=== PATIENT | male | born 1955 | race Two or more races ===

== ENCOUNTER 2023-10-09 15:49 | Inpatient (IN) | payer MEDICARE, MEDICAID ==
[~2023-10-09] VITALS: Ht 167.6 cm; Wt 72.6 kg
[2023-10-09] VITALS (10 sets, daily range): BP systolic 0–177; BP diastolic 22–102; PULSE 0–104; RESP 0–38; O2SAT 0–100
[~2023-10-09 15:49] MED LIST: atropine 0.1mg/ml 10ml syringe ONE; epiNEPHrine 0.1mg/ml 10ml syringe ONE; sod chloride 0.9% 10ml flush syringe IV ONE; sodium bicarbonate (8.4%) 1 mEq/ml syringe ONE
[2023-10-09] MEDS ORDERED: heparin 1,000unit/ml 10ml vial 10 ML ONE (15:57)
[2023-10-09] MEDS ORDERED: midazolam 1 mg/ML 2ml injection ONE (15:57)
[2023-10-09] MEDS ORDERED: iohexol 350 MG/ML 50ML vial IV ONE (15:57)
[2023-10-09] MEDS ORDERED: fentaNYL/PF 50MCG/1 ML 2ML syringe ONE (15:57)
[2023-10-09] MEDS ORDERED: iohexol 350MG/ML 100ml bottle IV ONE ×2 (15:57→16:41)
[2023-10-09] MEDS ORDERED: LIDOcaine 1% 30ml preserv. free vial ONE (15:57)
[2023-10-09] MEDS ORDERED: amiodarone 50MG/ML inj IV ONE (16:40)
[2023-10-09] MEDS ORDERED: amiodarone inj. 450 MG in dextrose 5%-water 241 ML IV SCH (16:40)
[2023-10-09] MEDS ORDERED: mag hydrox/Alum hydrox/simeth 30ml oral suspension PO PRN (17:00)
[2023-10-09] MEDS ORDERED: magnesium 2GM in 50ml NS 50 ML IV PRN (17:00)
[2023-10-09] MEDS ORDERED: acetaminophen 325mg tablet PO PRN (17:00)
[2023-10-09] MEDS ORDERED: potassium Cl 40MEQ/1/2NS 520ml 520 ML IV PRN (17:00)
[2023-10-09] MEDS ORDERED: magnesium Cl slow-release 64mg tablet PO PRN (17:00)
[2023-10-09] MEDS ORDERED: ondansetron/PF 4mg/2ml inj IV PRN (17:00)
[2023-10-09] MEDS ORDERED: morphine 2 MG/ML inj. syringe IV PRN ×2 (17:00)
[2023-10-09] MEDS: LidoCAINE 2% Topical Jelly 11mL syringe (UROJET) TOP ONE (17:00)
[2023-10-09] MEDS ORDERED: magnesium hydroxide 30ml (MOM) UD suspension PO PRN (17:00)
[2023-10-09] MEDS ORDERED: magnesium 4gm in 100ml NS 100 ML IV PRN (17:00)
[2023-10-09] MEDS ORDERED: potassium Cl 20 mEq SR tablet PO PRN ×2 (17:00)
[2023-10-09] MEDS ORDERED: HYDROcodone/acetaminophen 5mg/325mg tablet PO PRN (17:00)
[2023-10-09] MEDS ORDERED: HYDROcodone/acetaminophen 10/325mg tab PO PRN (17:00)
[2023-10-09] MEDS ORDERED: nitroGLYCERIN 500mcg/5mL D5W 5 ML IV ONE (17:04)
[2023-10-09] MEDS ORDERED: NORepinephrine 1 mg/ml inj IV ONE (17:31)
[2023-10-09] MEDS ORDERED: phenylephrine 10mg/ml inj. -priapism dosing ONE (17:40)
[2023-10-09] MEDS ORDERED: DOBUTamine-DoBUTrex 500mg/D5W 250 ML IV ONE (17:45)
[2023-10-09] MEDS: NORepinephrine 8mg/ 250ml NS 250 ML IV SCH (19:03)
[2023-10-09] MEDS: DEXTROSE 5% IV SCH (19:05)
[2023-10-09] MEDS: EPINEPHRINE IV SCH (19:05)
[2023-10-09] MEDS: WATER IV SCH (19:05)
[2023-10-09 19:37] LABS: BASOPHILS % (AUTO) 0.2 % (0-1); EOSINOPHILS % (AUTO) 0.1 % (0-6); HEMATOCRIT 31.4 % (42.0-52.0); HEMOGLOBIN 10.2 g/dl (14.0-17.9); LYMPHOCYTES # (AUTO) 1.5 X10'3 (1.1-4.8); LYMPHOCYTES % (AUTO) 5.8 % (21-51); MEAN CORPUSCULAR HEMOGLOBIN 28.6 PG (27.0-31.0); MEAN CORPUSCULAR HGB CONC 32.3 g/dL (33.0-36.5); MEAN CORPUSCULAR VOLUME 88.5 FL (78-98); MEAN PLATELET VOLUME 12.1 FL (7.4-10.4); MONOCYTES # (AUTO) 2.3 X10'3 (0-0.9); NEUTROPHILS # (AUTO) 21.4 X10'3 (1.8-7.7); NEUTROPHILS % (AUTO) 84.9 % (42-75); PLATELET COUNT 178 X10'3 (140-440); RED BLOOD COUNT 3.55 X10'6 (4.70-6.10); RED CELL DISTRIBUTION WIDTH 15.9 % (11.5-14.5)
[2023-10-09 19:41] LABS: WHITE BLOOD COUNT 25.2 X10'3 (4.5-11.0)
[2023-10-09] MEDS: sodium bicarbonate (8.4%) 1 mEq/ml syringe IV ONE ×4 (19:41→20:51)
[2023-10-09] MEDS: ticagrelor 90mg tablet PO ONE (19:44)
[2023-10-09] MEDS: propofol 1000mg/100ml bottle 100 ML IV ONE (19:45)
[2023-10-09] MEDS: epiNEPHrine 10 MG in NS 250ml IV SOLUTION IV SCH (19:50)
[2023-10-09] MEDS: heparin 10,000 units/1 ML INJ IV ONE (19:52)
[2023-10-09] MEDS: amiodarone/D5 360MG/200ML BAG 200 ML IV SCH (19:52)
[2023-10-09 19:53] LABS: ALANINE AMINOTRANSFERASE 472 U/L (12-78); ALBUMIN 2.1 G/DL (3.4-5.0); ALKALINE PHOSPHATASE 65 IU/L (46-116); ASPARTATE AMINO TRANSFERASE 553 U/L (10-37); BILIRUBIN,TOTAL 0.3 MG/DL (0.1-1.0); BLOOD UREA NITROGEN 18 MG/DL (7-18); BUN/CREATININE RATIO 11.5 (10.0-20.0); CREATININE 1.57 MG/DL (0.60-1.10); TOTAL PROTEIN 4.2 G/DL (6.4-8.2); eCRCL 41 ML/MIN; eGFR 44 ML/MIN
[2023-10-09 19:56] LABS: INR 1.4 INR
[2023-10-09] MEDS: docusate sod 100mg capsule PO SCH (20:00)
[2023-10-09] MEDS: K and/or MAG REPLACEMENT MC SCH (20:00)
[2023-10-09] MEDS ORDERED: sodium bicarbonate 1meq/ml inj 150 ML in sodium chloride 0.45% 1,000 ML IV SCH (20:00)
[2023-10-09] MEDS: aspirin 81mg, enteric-coated 1 TAB TABLET.DR PO ONE (20:02)
[2023-10-09 20:11] LABS: ANION GAP 20 (8-16); CALCIUM 6.3 MG/DL (8.5-10.1); CHLORIDE 102 MMOL/L (99-107); SODIUM 133 MMOL/L (135-145)
[2023-10-09 20:15] LABS: GLUCOSE 552 MG/DL (70-104)
[2023-10-09 20:16] LABS: TOTAL CARBON DIOXIDE 10.6 MMOL/L (24-32)
[2023-10-09] MEDS ORDERED: atorvastatin 20mg tablet PO ONE (20:20)
[2023-10-09 20:31] LABS: APTT > 139 SECONDS (22-32)
[2023-10-09] MEDS: NORepinephrine inj. 32 MG in normal saline 250ml IV soln 218 ML IV SCH (20:38)
[2023-10-09] MEDS: calcium chloride 100 MG/1 ML inj IV ONE ×4 (20:40→21:00)
[2023-10-09 20:45] LABS: TOTAL CELLS COUNTED 100
[2023-10-09 20:46] LABS: LARGE PLATELETS MODERATE; PLATELET ESTIMATE NORMAL
[2023-10-09] MEDS: SODIUM CHLORIDE 0.45% IV SCH (20:51)
[2023-10-09] MEDS: SODIUM BICARBONATE IV SCH (20:51)
[2023-10-09] MEDS: epiNEPHrine 1 mg/ml inj IV STA ×3 (21:11→21:29)
[2023-10-09] MEDS: atropine 1 MG/1 ML vial IV ONE (21:11)
[2023-10-09 21:15] LABS: BASOPHILS # (AUTO) 0.1 X10'3 (0-0.2); BASOPHILS % (AUTO) 0.4 % (0-1); EOSINOPHILS % (AUTO) 0.1 % (0-6); LYMPHOCYTES # (AUTO) 1.3 X10'3 (1.1-4.8); LYMPHOCYTES % (AUTO) 7.4 % (21-51); MEAN CORPUSCULAR HEMOGLOBIN 29.1 PG (27.0-31.0); MEAN CORPUSCULAR HGB CONC 32.8 g/dL (33.0-36.5); MEAN CORPUSCULAR VOLUME 88.6 FL (78-98); MEAN PLATELET VOLUME 11.3 FL (7.4-10.4); MONOCYTES # (AUTO) 1.4 X10'3 (0-0.9); MONOCYTES % (AUTO) 7.7 % (2-12); NEUTROPHILS # (AUTO) 15.3 X10'3 (1.8-7.7); NEUTROPHILS % (AUTO) 84.4 % (42-75); PLATELET COUNT 134 X10'3 (140-440); RED BLOOD COUNT 2.31 X10'6 (4.70-6.10); RED CELL DISTRIBUTION WIDTH 15.2 % (11.5-14.5); WHITE BLOOD COUNT 18.1 X10'3 (4.5-11.0)
[2023-10-09 21:46] LABS: HEMOGLOBIN 6.7 g/dl (14.0-17.9)
[2023-10-09 21:47] LABS: HEMATOCRIT 20.5 % (42.0-52.0)
[2023-10-10] MEDS ORDERED: ticagrelor 90mg tablet PO SCH (08:00)
[2023-10-10] MEDS ORDERED: atorvastatin 20mg tablet PO SCH (08:00)
[2023-10-10] MEDS ORDERED: aspirin 81mg tab.chew PO SCH (08:00)
[2023-10-10 08:25] LABS: ABG BASE EXCESS -20.1 mmol/L (-2.0-2.0); ABG HCO3 7.7 mmol/L (22.0-26.0); ABG OXYGEN SATURATION 89.8 % (94-97); ABG PCO2 (T) 24.3 mmHg (35.0-48.0); ABG PH (T) 7.117 (7.340-7.440); ABG PO2 (T) 67.9 mmHg (75.0-100.0); FCOHb 0.3 % (0.0-3.9); FHHb 10.1 % (0.0-5.0); FMetHb 0.3 % (0.0-1.5); FO2Hb 89.3 % (94-97); MODE VENT - PRVC; PATIENT TEMPERATURE 36.7; PEEP 5 cm H2O; RESPIRATORY RATE 12 b/min; TIDAL VOLUME 450 mL; TOTAL HEMOGLOBIN 10.3 G/dl (14.0-17.9)
[2023-10-10 08:26] LABS: ABG BASE EXCESS 0.8 mmol/L (-2.0-2.0); ABG HCO3 25.3 mmol/L (22.0-26.0); ABG OXYGEN SATURATION 95.7 % (94-97); ABG PCO2 (T) 38.5 mmHg (35.0-48.0); ABG PH (T) 7.432 (7.340-7.440); ABG PO2 (T) 76.9 mmHg (75.0-100.0); FCOHb 0.6 % (0.0-3.9); FHHb 4.3 % (0.0-5.0); FMetHb 0.3 % (0.0-1.5); FO2Hb 94.8 % (94-97); MODE VENT - PRVC; PATIENT TEMPERATURE 36.2; PEEP 5 cm H2O; RESPIRATORY RATE 12 b/min; TIDAL VOLUME 450 mL; TOTAL HEMOGLOBIN 6.4 G/dl (14.0-17.9)
[2023-10-10] MEDS ORDERED: mineral oil/petrolatum ophthal oint EACHEYE SCH (20:00)
== END 2023-10-09 21:50 | DRG 270 ==
LOC: ER 15:50 → CICU 2S 17:11
PROVIDERS: ADMIT Internal Medicine Critical Care Medicine; ATTEND Internal Medicine Critical Care Medicine
PROC: 02703ZZ Dilation of Coronary Artery, One Artery, Percutaneous Approach (ICD-10-PCS; principal; 2023-10-09)
PROC: 5A02210 Assistance with Cardiac Output using Balloon Pump, Continuous (ICD-10-PCS; 2023-10-09)
PROC: 4A023N7 Measurement of Cardiac Sampling and Pressure, Left Heart, Percutaneous Approach (ICD-10-PCS; 2023-10-09)
PROC: B2111ZZ Fluoroscopy of Multiple Coronary Arteries using Low Osmolar Contrast (ICD-10-PCS; 2023-10-09)
PROC: B2151ZZ Fluoroscopy of Left Heart using Low Osmolar Contrast (ICD-10-PCS; 2023-10-09)
PROC: 5A12012 Performance of Cardiac Output, Single, Manual (ICD-10-PCS; 2023-10-09)
DX: T82.855A Stenosis of coronary artery stent, initial encounter (principal); I21.3 ST elevation (STEMI) myocardial infarction of unspecified site; Y83.8 Other surgical procedures as the cause of abnormal reaction of the patient, or of later complication, without mention of misadventure at the time of the procedure; E11.9 Type 2 diabetes mellitus without complications; I10 Essential (primary) hypertension; E78.5 Hyperlipidemia, unspecified; I25.10 Atherosclerotic heart disease of native coronary artery without angina pectoris; Y92.89 Other specified places as the place of occurrence of the external cause; Z95.5 Presence of coronary angioplasty implant and graft; I46.9 Cardiac arrest, cause unspecified
CPT/HCPCS: 92950; 93458; 99285; C9606; 36415; 36600; 71045; 80053; 82803; 82948; 85007; 85018; 85025; 85347; 85610; 85730; 86885; 86900; 86901; 86920; 93005; 94002; 94760; A6258; A6449; C1725; C1751; C1769; G0378; J0171; J0282; J0461; J1250; J1644; J2250; J2370; J2704; J3010; J3490; J7030; J7040; J7050; J7060; Q9967